=== PATIENT | female | born 1990 | race Two or more races ===

== ENCOUNTER 2025-05-09 07:00 | Day surgery (SDC) | payer OTHER ==
[2025-05-07 10:13] LABS: URINE APPEARANCE Clear; URINE BILIRRUBIN Negative (NEGATIVE); URINE BLOOD Negative; URINE COLOR Yellow; URINE GLUCOSE Negative (NEGATIVE); URINE KETONE Negative (NEGATIVE); URINE LEUKOCYTE Trace; URINE NITRATE Negative; URINE PROTEIN Negative (NEGATIVE); URINE UROBILINOGEN 0.2 E.U./dl
[2025-05-07 10:18] LABS: URINE BACTERIA 11.9 uL (0.0-1933); URINE EPITHELIAL CELLS 5.9 uL (0.0-38.8); URINE RBC 3.0 uL (0.0-20.8); URINE WBC 6.3 uL (0.0-23.2)
[2025-05-07 10:31] LABS: BASO % 0.5 % (0.1-1.2); EOS # 0.12 (0.04-0.54); EOS % 2.8 % (0.7-7.0); LYMPH # 0.91 (1.18-3.74); LYMPH % 21.1 % (19.3-53.1); MEAN PLATELET VOLUME 9.50 fl (9.4-12.4); MONO # 0.52 (0.24-0.82); NEUT # 2.73 (1.56-6.13); NEUT % 63.3 % (34.0-71.1); RED CELL DISTRIBUTION WIDTH 13.8 % (11.6-14.4)
[2025-05-07 10:36] LABS: MONO % 12.1 % (4.7-12.5)
[2025-05-07 10:41] LABS: URINE CAST 0.14 uL (0.0-1.40)
[2025-05-07 10:50] LABS: INR 1.25
[2025-05-07 10:51] LABS: ALT/SGPT 24.0 U/L (12-78); AST/SGOT 13.0 U/L (15-37); BILIRUBIN TOTAL 0.36 mg/dL (0.3-1.2); BUN CREA RATIO 28.0 (7.0-25.0); CREATININE SERUM 0.68 mg/dL (0.55-1.02); GFR 97.9; GLOBULINA 2.8 G/DL (2.4-3.5); GLUCOSE FASTING 103.0 mg/dL (65-100); OSMOLALITY SERUM 284.0 MOSM/KG (275-295)
[2025-05-07 10:59] LABS: COVID-19 AG NEGATIVE (NEGATIVE)
[2025-05-07 12:14] VITALS: BP 102/70
[~2025-05-09] VITALS: Ht 152.5 cm; Wt 46.7 kg
[2025-05-09] MEDS ORDERED: GENTAMICIN SULFATE 40 MG/ML VIAL IR ONE (13:30)
[2025-05-09] MEDS ORDERED: CEFAZOLIN SODIUM 1,000 MG VIAL IJ ONE (13:30)
[2025-05-09] MEDS ORDERED: CLINDAMYCIN PHOSPHATE 150 MG/ML (900mg) IV SCH (13:30)
[2025-05-09] MEDS ORDERED: TRANEXAMIC ACID 100MG/1ML (1000MG) AMPUL IV ONE ×2 (13:30)
[2025-05-09] MEDS ORDERED: BUPIVACAINE HCL 30 ML VIAL IJ ONE (13:30)
[2025-05-09] MEDS ORDERED: MORPHINE SULFATE 4 MG/ML VIAL IV ONE (17:50)
== END 2025-05-09 19:25 | disposition home or self-care (01) ==
LOC: CIR.AMB 07:00
PROVIDERS: ATTEND Surgery
DX: C50.412 Malignant neoplasm of upper-outer quadrant of left female breast (principal); D48.61 Neoplasm of uncertain behavior of right breast; N60.21 Fibroadenosis of right breast; N65.1 Disproportion of reconstructed breast; R59.0 Localized enlarged lymph nodes; Z90.13 Acquired absence of bilateral breasts and nipples

== ENCOUNTER 2025-07-11 07:00 | Day surgery (SDC) | payer OTHER ==
[2025-07-10 09:37] LABS: BASO % 0.7 % (0.1-1.2); EOS # 0.10 (0.04-0.54); EOS % 2.5 % (0.7-7.0); LYMPH # 1.18 (1.18-3.74); LYMPH % 29.0 % (19.3-53.1); MEAN PLATELET VOLUME 9.70 fl (9.4-12.4); MONO # 0.35 (0.24-0.82); MONO % 8.6 % (4.7-12.5); NEUT # 2.40 (1.56-6.13); NEUT % 59.0 % (34.0-71.1); RED CELL DISTRIBUTION WIDTH 13.6 % (11.6-14.4)
[2025-07-10 09:40] LABS: URINE APPEARANCE Clear; URINE BILIRRUBIN Negative (NEGATIVE); URINE BLOOD Negative; URINE COLOR Yellow; URINE GLUCOSE Negative (NEGATIVE); URINE KETONE Negative (NEGATIVE); URINE LEUKOCYTE Small; URINE NITRATE Negative; URINE PROTEIN Negative (NEGATIVE); URINE UROBILINOGEN 0.2 E.U./dl
[2025-07-10 09:44] LABS: URINE BACTERIA 21.5 uL (0.0-1933); URINE EPITHELIAL CELLS 4.7 uL (0.0-38.8); URINE RBC 5.2 uL (0.0-20.8); URINE WBC 22.1 uL (0.0-23.2)
[2025-07-10 09:50] LABS: URINE CAST 0.14 uL (0.0-1.40)
[2025-07-10 10:03] LABS: INR 1.24
[2025-07-10 10:24] VITALS: BP 115/76
[2025-07-10 10:25] LABS: ALT/SGPT 22.0 U/L (12-78); AST/SGOT 16.0 U/L (15-37); BILIRUBIN TOTAL 0.43 mg/dL (0.3-1.2); BUN CREA RATIO 25.0 (7.0-25.0); CREATININE SERUM 0.81 mg/dL (0.55-1.02); GFR 80.0; GLOBULINA 3.0 G/DL (2.4-3.5); GLUCOSE FASTING 92.0 mg/dL (65-100); OSMOLALITY SERUM 284.0 MOSM/KG (275-295)
[~2025-07-11] VITALS: Ht 152.4 cm; Wt 47.2 kg
[2025-07-11] MEDS ORDERED: TRANEXAMIC ACID 100MG/1ML (1000MG) AMPUL IV ONE ×2 (09:30)
[2025-07-11] MEDS ORDERED: CLINDAMYCIN PHOSPHATE 150 MG/ML (900mg) IV ONE (09:30)
[2025-07-11] MEDS ORDERED: POVIDONE-IODINE SCRUB 118 ML BOTT TOP ONE ×2 (09:30)
[2025-07-11] MEDS ORDERED: CEFAZOLIN SODIUM 1,000 MG VIAL IV ONE ×2 (09:30→11:00)
[2025-07-11] MEDS ORDERED: EPINEPHRINE HCL/PF 1 MG/ML AMPUL IR ONE (09:30)
[2025-07-11] MEDS ORDERED: GENTAMICIN SULFATE 40 MG/ML VIAL IR ONE (11:00)
[2025-07-11] MEDS ORDERED: POVIDONE-IODINE 118 ML BOTT TOP ONE (11:00)
[2025-07-11] MEDS ORDERED: ONDANSETRON HCL 2 MG/ML VIAL IV PRN (13:00)
== END 2025-07-11 15:35 | disposition home or self-care (01) ==
LOC: CIR.AMB 07:00
PROVIDERS: ATTEND Plastic Surgery
DX: C50.412 Malignant neoplasm of upper-outer quadrant of left female breast (principal); N65.1 Disproportion of reconstructed breast; Z90.13 Acquired absence of bilateral breasts and nipples